=== PATIENT | male | born 1940 | race Caucasian/White ===

== ENCOUNTER 2021-06-06 17:59 | Inpatient (IN) | payer OTHER ==
[~2021-06-06] VITALS: Ht 182.9 cm; Wt 111.2 kg
[2021-06-06] MEDS ORDERED: LOSARTAN-HCTZ1 EAC1 PO (22:23)
[2021-06-06] MEDS ORDERED: METOPROLOL SUCC25 MG PO (22:23)
[2021-06-06] MEDS ORDERED: ASPIRIN CHEWABL81 MG PO (22:24)
[2021-06-06] MEDS ORDERED: ATORVASTATIN CA20 MG PO (22:24)
[2021-06-06] MEDS ORDERED: ZYLOPRIM 300 M300 MG PO (22:25)
[2021-06-06] MEDS ORDERED: RAPAFLO8 MG PO (22:25)
[2021-06-06] MEDS ORDERED: NOVOLOG 10100 UNITS/ INJ (22:27)
[2021-06-06] MEDS ORDERED: TOUJEO MAX300 UNIT/1 SQ ×2 (22:28→22:29)
[2021-06-07 07:00] LABS: HEMOGLOBIN 12.2 gm/dl (14.0-17.5); RED BLOOD COUNT 3.98 M/UL (4.20-5.50); WHITE BLOOD COUNT 7.6 K/UL (4.5-11.0)
[2021-06-07] MEDS ORDERED: INSULIN AS100 UNIT/3 SQ (09:47)
--- NOTE | 2021-06-08 05:16 | NUR ---
FOUND PATIENT SITTING IN FLOOR NEXT TO HIS BED. PT STATED THAT HE WAS SITTING ON SIDE OF THE BED AND SLID INTO THE FLOOR WHEN HE ATTEMPTED TO GET UP. PT RESTING QUIETLY FREE OF INJURY OR DISTRESS. NOTIFIED DR DE SOUZA. RECIEVED NO NEW ORDERS. WILL CONTINUE TO MONITOR.
[2021-06-08 07:49] LABS: HEMOGLOBIN 11.1 gm/dl (14.0-17.5); RED BLOOD COUNT 3.71 M/UL (4.20-5.50); WHITE BLOOD COUNT 8.1 K/UL (4.5-11.0)
[2021-06-09 07:20] LABS: HEMOGLOBIN 9.8 gm/dl (14.0-17.5); WHITE BLOOD COUNT 6.8 K/UL (4.5-11.0)
[2021-06-09 07:21] LABS: RED BLOOD COUNT 3.27 M/UL (4.20-5.50)
[2021-06-09] MEDS ORDERED: OXYCODON-ACETA1 EAC1 PO (17:19)
[2021-06-10 07:41] LABS: HEMOGLOBIN 9.9 gm/dl (14.0-17.5); RED BLOOD COUNT 3.31 M/UL (4.20-5.50)
[2021-06-10 07:43] LABS: WHITE BLOOD COUNT 10.1 K/UL (4.5-11.0)
[2021-06-11 07:07] LABS: HEMOGLOBIN 9.2 gm/dl (14.0-17.5); RED BLOOD COUNT 2.99 M/UL (4.20-5.50); WHITE BLOOD COUNT 8.3 K/UL (4.5-11.0)
[2021-06-12 07:36] LABS: RED BLOOD COUNT 3.02 M/UL (4.20-5.50); WHITE BLOOD COUNT 6.7 K/UL (4.5-11.0)
[2021-06-12] MEDS ORDERED: ELIQUIS 2.5 MG2.5 MG PO (12:31)
== END 2021-06-12 17:50 | disposition home or self-care (01) | DRG 483 ==
LOC: ER1 17:59 → M/S 20:22 → CDU 20:22 → M/S 06-07 00:45
PROVIDERS: Internal Medicine; Orthopaedic Surgery; Physician Assistant; Physician Assistant Medical; ADMIT Internal Medicine
PROC: 0RRJ00Z Replacement of Right Shoulder Joint with Reverse Ball and Socket Synthetic Substitute, Open Approach (ICD-10-PCS; principal; 2021-06-09 10:00)
DX: S42.291A Other displaced fracture of upper end of right humerus, initial encounter for closed fracture (principal); N17.9 Acute kidney failure, unspecified; Z20.822 Contact with and (suspected) exposure to COVID-19; S42.91XA Fracture of right shoulder girdle, part unspecified, initial encounter for closed fracture; W01.0XXA Fall on same level from slipping, tripping and stumbling without subsequent striking against object, initial encounter; M10.9 Gout, unspecified; I12.9 Hypertensive chronic kidney disease with stage 1 through stage 4 chronic kidney disease, or unspecified chronic kidney disease; I48.0 Paroxysmal atrial fibrillation; N18.30 Chronic kidney disease, stage 3 unspecified; E66.9 Obesity, unspecified; D63.1 Anemia in chronic kidney disease; E11.22 Type 2 diabetes mellitus with diabetic chronic kidney disease; Z88.5 Allergy status to narcotic agent; Z88.8 Allergy status to other drugs, medicaments and biological substances; Z79.4 Long term (current) use of insulin; Z86.73 Personal history of transient ischemic attack (TIA), and cerebral infarction without residual deficits; Z79.01 Long term (current) use of anticoagulants; Z68.33 Body mass index [BMI] 33.0-33.9, adult
CPT/HCPCS: 36415; 70450; 72125; 73020; 73060; 73200; 80048; 80053; 82962; 83735; 85025; 85027; 85610; 86850; 86900; 86901; 93005; 97110; 97116-GP-CQ; 97161; 97166; 97535; 99285; C1713; C1776; J0690; J1100; J1650; J2001; J2250; J2270; J2370; J2405; J2704; J2795; J3010; J3370; J7030; J7120; U0002

== ENCOUNTER → 2021-08-07 | Outpatient (CLI) | payer OTHER ==
[~2021-08-07] MED LIST: ASPIRIN CHEWABL81 MG PO; ATORVASTATIN CA20 MG PO; ELIQUIS 2.5 MG2.5 MG PO; INSULIN AS100 UNIT/3 SQ; LOSARTAN-HCTZ1 EAC1 PO; METOPROLOL SUCC25 MG PO; NOVOLOG 10100 UNITS/ INJ; OXYCODON-ACETA1 EAC1 PO; RAPAFLO8 MG PO; TOUJEO MAX300 UNIT/1 SQ; ZYLOPRIM 300 M300 MG PO
== END ==
LOC: HEART 5 14:11
DX: I48.91 Unspecified atrial fibrillation (principal)
CPT/HCPCS: 93306

== ENCOUNTER 2021-12-22 05:18 | Emergency (ER) | payer OTHER ==
[2021-12-22 06:14] LABS: RED BLOOD COUNT 4.04 M/UL (4.20-5.50); WHITE BLOOD COUNT 5.3 K/UL (4.5-11.0)
== END 2021-12-22 10:44 | disposition home or self-care (01) ==
LOC: ER1 05:18
PROVIDERS: Student in an Organized Health Care Education/Training Program
DX: I11.0 Hypertensive heart disease with heart failure (principal); E11.9 Type 2 diabetes mellitus without complications; Z79.4 Long term (current) use of insulin; Z86.73 Personal history of transient ischemic attack (TIA), and cerebral infarction without residual deficits
CPT/HCPCS: 70450; 71045; 80053; 82550; 82553; 84484; 85025; 93005; 96374; 99284; J0360

== ENCOUNTER → 2022-01-09 | Outpatient (CLI) | payer OTHER | LOC: EXRD 09:53 | DX: D69.59 Other secondary thrombocytopenia (principal) | CPT/HCPCS: 76705 ==